=== PATIENT | female | born 1950 | race Caucasian/White ===

== ENCOUNTER 2016-08-03 08:31 | Emergency (ER) | payer OTHER ==
[2016-08-03 08:48] VITALS: BP 165/81
--- NOTE | 2016-08-03 09:44 | RAD ---
HISTORY: Tender fourth, fifth digits of the right foot after trauma COMPARISONS: None VIEWS: 3, Frontal, lateral, and oblique views of the right foot FINDINGS: BONE DENSITY: There is diffuse osteopenia. BONES: There is a nondisplaced fracture of the base of the proximal phalanx of the fifth digit. There is probable articular extension. Calcaneal enthesophytes are noted JOINTS: There is no arthropathy. ALIGNMENT: There is no dislocation. SOFT TISSUES: Unremarkable. OTHER FINDINGS: None. IMPRESSION: 1. OSTEOPENIA. 2. NONDISPLACED FRACTURE OF THE BASE OF THE PROXIMAL PHALANX OF THE FIFTH DIGIT.
--- NOTE | 2016-08-03 10:17 | UC ---
Troy Martinez Michael, scribed for Anastasiya Pate DO on 08/03/16 at 0906 . Lower Extremity/Ankle HPI - HPI Summary HPI Summary: 66 y/o reports walking to the bathroom and she accidentally kicked the radiator wall in between the 4th and 5th toe on her right foot one day ago. The pt reports the pain is alleviated with Ibuprofen and tapping her toes together, and the pain is between a 4-5 out of 10. Without the tape, the pain is aggravated with walking. She denies numbness, weakness, and paresthesia. The FHx is significant for cardiac disease. - History of Current Complaint Chief Complaint: UCLowerExtremity Stated Complaint: TOE INJURY Time Seen by Provider: 08/03/16 08:52 Hx Obtained From: Patient, Medical Records Onset/Duration: Sudden Onset, Lasting Days, Still Present Severity Initially: Moderate Severity Currently: Moderate Pain Intensity: 5 Pain Scale Used: 0-10 Numeric Aggravating Factor(s): Other - walking Alleviating Factor(s): OTC Meds, Other - taping toes together Able to Bear Weight: Yes - Allergies/Home Medications Allergies/Adverse Reactions: Allergies Allergy/AdvReac Type Severity Reaction Status Date / Time statins Allergy Muscle Ache Uncoded 08/03/16 08:41 Home Medications: Home Medications Calcium Carbonate [Calcium] 500 mg PO DAILY 08/03/16 [History Confirmed 08/03/16 ] PMH/Surg Hx/FS Hx/Imm Hx Endocrine History Of: Denies: Diabetes, Thyroid Disease Cardiovascular History Of: Denies: Cardiac Disorders, Hypertension Respiratory History Of: Reports: Asthma Denies: COPD GI/ History Of: Denies: Ulcer - Surgical History Surgical History: Yes Surgery Procedure, Year, and Place: breast biopsies - fibrocystic changes - Family History Known Family History: Positive: Cardiac Disease Negative: Hypertension, Diabetes - Social History Occupation: Employed Full-time Lives: Alone Alcohol Use: Occasionally Substance Use Type: None Smoking Status (MU): Never Smoked Tobacco - Immunization History Most Recent Influenza Vaccination: fall 2015 Review of Systems Constitutional: Negative Skin: Negative Eyes: Negative ENT: Negative Respiratory: Negative Cardiovascular: Negative Gastrointestinal: Negative Genitourinary: Negative Motor: Negative Neurovascular: Negative Musculoskeletal: Other: - right 4th and 5th toe pain Neurological: Negative Psychological: Negative All Other Systems Reviewed And Are Negative: Yes Physical Exam Triage Information Reviewed: Yes Appearance: Well-Appearing, No Pain Distress, Well-Nourished Vital Signs: Initial Vital Signs Temp 98.0 F 08/03/16 08:43 Pulse 69 08/03/16 08:43 Resp 16 08/03/16 08:43 BP 165/81 08/03/16 08:43 Pulse Ox 100 08/03/16 08:43 Vital Signs Reviewed: Yes Eyes: Positive: Conjunctiva Clear. Negative: Discharge ENT: Positive: Hearing grossly normal. Negative: Muffled/hoarse voice Neck: Positive: Supple, Nontender Respiratory: Positive: Lungs clear, Normal breath sounds, No respiratory distress, No accessory muscle use Cardiovascular: Positive: RRR, No Murmur Musculoskeletal: Positive: Other: - tender distal metatarsal and proximal phalanx Neurological: Positive: Alert, Muscle Tone Normal Psychological Exam: Normal Psychological: Positive: Age Appropriate Behavior Skin: Positive: Other - warm. dry. nml color. Diagnostics - Radiology foot xr Xray Interpretation: Positive (See Comments) - 1. OSTEOPENIA. 2. NONDISPLACED FRACTURE OF THE BASE OF THE PROXIMAL PHALANX OF THE FIFTH DIGIT. Radiology Interpretation Completed By: Radiologist Lower Extremity Course/Dx - Course Course Of Treatment: i didnt catch fracture of 5th prox phalanx and d/c pt with dx of toe sprain and contusion. got read. called pt and let her know of dx. rec - f/u with dr darling. pt already has relationship with dr ayala and would prefer to return to his care. she will call for an appointment - Differential Dx/Diagnosis Differential Diagnosis/HQI/PQRI: Contusion, Fracture (Closed), Sprain, Strain Provider Diagnoses: toe fracture Discharge - Discharge Plan Condition: Stable Disposition: HOME Patient Education Materials: Sprain (ED), Foot Contusion (ED) Referrals: Olga Humphries MD [Primary Care Provider] - (follow up in 5-7 days) The documentation as recorded by the Troy ross Michael accurately reflects the service I personally performed and the decisions made by me, Anastasiya Pate DO.
== END 2016-08-03 09:43 | disposition home or self-care (01) ==
LOC: UCEAST 08:31
DX: S92.511A Displaced fracture of proximal phalanx of right lesser toe(s), initial encounter for closed fracture (principal); W22.09XA Striking against other stationary object, initial encounter; Y93.9 Activity, unspecified; Y92.9 Unspecified place or not applicable
CPT/HCPCS: 99212; G0463

== ENCOUNTER 2017-11-25 06:36 | Day surgery (SDC) | payer OTHER ==
[~2017-11-25 06:36] MED LIST: Acetaminophen TAB* 325 MG PO PRN; Buffered Lidocaine 0.9% SYRIN* 5 ML/SYR SYRINGE INTRADERM ONE
[2017-11-25] MEDS ORDERED: Midazolam* 1 MG/ML 2 ML VIAL (2 MG) ONE ×2 (08:20→08:29)
[2017-11-25] MEDS ORDERED: Lidocaine 1% MPF* 2 ML VIAL ONE (09:07)
[2017-11-25] MEDS ORDERED: Proparacaine 0.5% OPHTH.SOL* 15 ML BTL ONE (09:07)
[2017-11-25] MEDS ORDERED: Lidocaine 2% EPI 1:200000 MPF*10-20 ML VIAL ONE (09:07)
[2017-11-25] MEDS ORDERED: Ketorolac 0.5% OPHTH (NF) 0.5 % 5 ML BTL ONE (09:07)
[2017-11-25] MEDS ORDERED: acetaZOLAMIDE TAB* 250 MG ONE (09:07)
[2017-11-25] MEDS ORDERED: Cyclopentolate 1% OPTH.SOL* 2 ML BTL ONE (09:07)
[2017-11-25] MEDS ORDERED: Neomycin/Polymy/Dex OPTH.SUSP* MAXITROL 0.1% 5 ML ONE (09:07)
[2017-11-25] MEDS ORDERED: Povidone Iodine 5% OPTH* 30 ML BTL ONE (09:07)
[2017-11-25] MEDS ORDERED: Phenylephrine 2.5% OPTH.SOL* 2 ML BTL ONE (09:07)
[2017-11-25 09:15] VITALS: BP 133/67
--- NOTE | 2017-11-25 22:03 | OP ---
DATE OF OPERATION: 11/25/17 [facility] DATE OF : 50 SURGEON: Matthew Farias M.D. PREOPERATIVE DIAGNOSIS: Cataract right eye. POSTOPERATIVE DIAGNOSIS: Cataract right eye. OPERATIVE PROCEDURE: Extracapsular cataract extraction with intraocular lens implant right eye. DESCRIPTION OF PROCEDURE: The patient was brought to the operating room after being given 1/2% Alcaine with epinephrine drops in the preoperative area. The eye was prepped and draped in the usual sterile fashion. Sterile drape and eyelid speculum were placed. Again, topical 1/2% Alcaine with epinephrine was given. A paracentesis incision was made at the 9 o'clock position with the No.75 blade. Clear cornea incision 2.2 x 2.2-mm was created at the 12 o'clock position starting at the anterior limbus using the 2.2-mm keratome. The anterior chamber was irrigated with 0.4 mL of 1% non-preservative intracameral lidocaine and filled with DisCoVisc. A capsulorrhexis was completed using the cystotome and the Utrata forceps. Hydrodissection was performed with balanced salt solution. The lens nucleus was removed with the Phacoemulsification handpiece without incident. Cortex was removed with the irrigation-aspiration handpiece. The capsular bag was re-inflated using DisCoVisc and an [id number] Diopter implant was inserted with the shooter oriented to the 86-degree meridian. Horizontal reference lundberg were made with the patient in a seated position in the preoperative area. The irrigation-aspiration handpiece was used to remove all residual DisCoVisc. The eye was refilled with balanced salt solution and the wound checked and found to be watertight. Topical Maxitrol drops were given. [id number]/[facility] #: [id number] MTDD
== END 2017-11-25 09:13 | disposition home or self-care (01) ==
LOC: OREAST 06:36
PROVIDERS: ATTEND Specialist
DX: H25.811 Combined forms of age-related cataract, right eye (principal); I10 Essential (primary) hypertension; E78.5 Hyperlipidemia, unspecified; E83.52 Hypercalcemia; N95.1 Menopausal and female climacteric states; J45.909 Unspecified asthma, uncomplicated; R73.01 Impaired fasting glucose
CPT/HCPCS: A9270-GY; J2250; V2787